=== PATIENT | female | born 1945 | race African-American/Black ===

== ENCOUNTER 2016-10-23 11:04 | Emergency (ER) | payer MEDICARE, OTHER ==
[2016-10-23] MEDS ORDERED: Sodium Chloride 0.9% 1,000 ML ONE (11:58)
[2016-10-23] MEDS ORDERED: Ondansetron HCl/PF 4 MG/2 ML Vial ONE (11:58)
[2016-10-23 12:03] LABS: Bilirubin Negative (Negative); Blood, Urine Trace (Negative); Glucose, Urine (Dipstick) Negative (Negative); Ketone, Urine Negative (Negative); Nitrite Negative (Negative); Protein, Urine (Dipstick) Negative (Neg-Trace); Urobilinogen 0.2 mg/dL (0.2-1.0)
[2016-10-23 12:07] LABS: Bacteria/HPF Rare-Few HPF (None Seen); RBC/HPF 0-3 HPF (0-3); Squamous Epithelial 0-3 HPF (0-3); WBC/HPF 0-3 HPF (0-3)
[2016-10-23 12:13] LABS: #Basophils 0.1 thou/uL (0.0-0.2); #Eosinphils 0.2 thou/uL (0.0-0.7); #Lymphocytes 2.2 thou/uL (1.20-3.40); #Monocytes 0.6 thou/uL (0.11-0.59); #Neutrophils 7.5 thou/uL (1.40-6.50); %Basophils 1.2 % (0.0-1.0); %Eosinophils 1.4 % (0.0-10.0); %Lymphocytes 20.7 % (21.0-51.0); Hematocrit 44.4 % (36.0-47.0); Mean Platelet Volume 6.9 fL (7.4-10.4); Red Blood Cell (RBC) Count 4.74 mill/uL (4.20-5.40); White Blood Cell (WBC) Count 10.6 thou/uL (4.8-10.8)
[2016-10-23 12:25] LABS: ALT (SGPT) 61 U/L (0-55); AST (SGOT) 51 U/L (5-34); Alkaline Phosphatase 71 U/L (40-150); Anion Gap 16 mmol/L (10-20); BUN (Urea Nitrogen) 18 mg/dL (9.8-20.1); Bilirubin, Total 0.6 mg/dL (0.2-1.2); CK (CPK) 211 U/L (29-168); Calc. Creatinine Clearance 0 mL/min (70-130); Calcium 10.2 mg/dL (7.8-10.44); Carbon Dioxide 29 mmol/L (23-31); Chloride 101 mmol/L (98-107); Estimated GFR-MDRD 83; Globulin 3.3 g/dL (2.4-3.5); Lipase 43 U/L (8-78); Troponin I Less than 0.010 ng/mL (< 0.028)
--- NOTE | 2016-10-23 12:31 | RAD ---
SINGLE VIEW OF THE CHEST: INDICATION: Cough. COMPARISON: Prior exam dated 07/30/15. FINDINGS: There is stable mild cardiomegaly. No airspace consolidation or pleural effusion is evident. No ac [place] osseous abnormality is evident. IMPRESSION: Stable mild cardiomegaly. POS: [facility]
--- NOTE | 2016-10-23 13:02 | ERRECORD ---
[facility] EMERGENCY RECORD HPI GENERAL (11:48 JLOY) CHIEF COMPLAINT: Patient presents for evaluation of Pt with 3 days of generalized malaise, intermittent YU, nausea without vomiting, stomach upset, and leg cramps. Pt initially complained in intake of hand and foot numbness but on review she said this has been going on for months and is being followed by her pcp. HISTORIAN: History provided by patient. LOCATION: Symptoms are generalized. QUALITY: Pain is dull in nature. TIME COURSE: Gradual onset of symptoms, There has been no change in the patient's symptoms over time, are intermittent. ASSOCIATED WITH: Associated with nausea, runny nose, slight cough. Also with epigastric upset that feels like her GERD. She treated this last pm with TUMS and felt it improved. No GERD meds taken regularly though 'Mae been told I could take Prilosec regularly if I wanted'. EXACERBATED BY: Patient's condition exacerbated by nothing. RELIEVED BY: Patient's condition relieved by nothing. ROS (11:51 JL) CONSTITUTIONAL: Historian denies chills, reports fatigue, denies fever, reports malaise. EYES: Historian denies eye pain, denies eye redness, denies eye discharge. ENT: Historian reports rhinorrhea, denies sore throat. ears both feel 'plugged'. CARDIOVASCULAR: Historian denies chest pain. RESPIRATORY: Historian reports cough, denies shortness of breath, reports sputum. described as thick. GI: Historian denies abdominal pain, denies constipation, denies diarrhea, denies hematemesis, denies hematochezia, denies melena, reports nausea, denies vomiting. GENITOURINARY FEMALE: Historian denies dysuria, denies frequency, denies hematuria. MUSCULOSKELETAL: Historian denies arthralgias, denies myalgias. leg cramps. SKIN: Historian denies rash, denies skin changes. NEUROLOGIC: intermittent mild YU, intermittent mild dizziness. PAST MEDICAL HISTORY MEDICAL HISTORY: Notes: as lsited, Past medical history includes gastrointestinal disease, gastroesophageal reflux disease, Past medical history includes history of diabetes, diet controlled,includes endocrine disease, hypothyroidism,history of hyperlipidemia, high cholesterol, currently being treated,history of hypertension, which has been treated,, history includes cardiac history, Treated with angioplasty, on 2011, h/o Arthritis. (12:00 GHIA) &a-1R&a+25V*p+0X*[id number]*c202B*c15G*c2P*p-0X&a-25V&a+1R Name: Neris Pillai : 1945 F71 MedRec: [id number] AcctNum: [id number] Prepared: SunOct 23, 2016 13:30 by Interface Page [address] [facility] EMERGENCY RECORD FEMALE SURGICAL HISTORY: as listed, Surgical history of cholecystectomy, Surgical history of hysterectomy, Surgical history of thyroidectomy. Surgical history of spinal surgery, cervical, Notes: FUSION OF C6, REMOVAL OF C4 AND C5. (12:00 GHIA) PSYCHIATRIC HISTORY: Psychiatric history includes, anxiety, Psychiatric history includes, anxiety. (12:00 GHIA) SOCIAL HISTORY: Social History includes lives with family, Patient denies alcohol use, Patient denies drug use, Patient has no smoking history, . . (12:00 GHIA) NOTES: Nursing records reviewed, Agree with nursing records. (11:54 JLOY) KNOWN ALLERGIES Penicillins CURRENT MEDICATIONS No recorded medications VITAL SIGNS VITAL SIGNS: BP: 145/63, Pulse: 61, Resp: 19, Pain: 7, O2 sat: 99 on RA, Time: 10/23/2016 11:37. (11:37 GHIA) BP: 154/63, Pulse: 58, Resp: 17, Pain: 7, O2 sat: 99 on Room Air, Time: 10/23/2016 11:58. (11:58 GHIA) BP: 123/58, Pulse: 58, Resp: 18, Temp: 98.1, Pain: 4, O2 sat: 97% on RA, Time: 10/23/2016 13:24. (13:24 REZE) PHYSICAL EXAM CONSTITUTIONAL: Vital signs reviewed, Patient appears non toxic, Patient alert and oriented to person, place and time. (11:53 JLOY) EYES: Eye exam included findings of eyelids normal to inspection, Pupils equally round and reactive to light, Conjunctiva normal. (11:53 JLOY) ENT: Ear exam included findings of, left external ear with impacted cerumen, right external ear with impacted cerumen, Pharynx exam normal, Uvula exam normal, Tonsil exam normal, Mouth exam included findings of, mucous membranes dry. (11:53 JLOY) NECK: Neck exam included findings of normal range of motion, Trachea midline, no jugular venous distention, no cervical adenopathy. (11:53 JLOY) RESPIRATORY CHEST: Respiratory exam included findings of no respiratory distress, Breath sounds clear, No wheezing, No rales, No rhonchi, Chest exam included findings of chest movement symmetrical. (11:53 JLOY) CARDIOVASCULAR: Cardiovascular exam included findings of heart rate regular rate and rhythm, Heart sounds normal, normal S1, normal S2, no murmurs, no rub, no gallop. (11:53 JLOY) ABDOMEN FEMALE: Abdominal exam included findings of abdomen &a-1R&a+25V*p+0X*s1994B*c202B*c15G*c2P*p-0X&a-25V&a+1R Name: Neris Pillai : 1945 F71 MedRec: [id number] AcctNum: [id number] Prepared: SunOct 23, 2016 13:30 by Interface Page [address] [facility] EMERGENCY RECORD nontender, Bowel sounds normal, Liver normal, Spleen normal, no peritoneal signs, no rigidity, no guarding, no rebound. (11:53 JLOY) BACK: Back exam included findings of normal inspection, range of motion normal. (11:53 JLOY) UPPER EXTREMITY: Upper extremity exam included findings of inspection normal, Radial pulse normal, no cyanosis, no clubbing, no edema. (11:53 JLOY) LOWER EXTREMITY: Lower extremity exam included findings of inspection normal, Pedal pulse normal, no edema, no calf tenderness. (11:53 JLOY) NEURO: Yoly coma scale 15, Neuro exam findings include patient oriented to person, place and time, Speech normal. (11:53 JLOY) SKIN: Skin exam included findings of skin warm, dry, and normal in color, no rash. (11:53 JLOY) PSYCHIATRIC: Affect, flat. (11:54 JLOY) MEDICATION ADMINISTRATION SUMMARY Drug Name: ondansetron HCl intravenous, Dose Ordered: 4 mg, Route: IV Push, Status: Given, Time: 12:07 10/23/2016, Drug Name: *sodium chloride 0.9 % intravenous, Dose Ordered: 1 L, Route: IV Fluid Infusion, Status: Given, Time: 12:05 10/23/2016, *Additional information available in notes, Detailed record available in Medication Service section. DOCTOR NOTES (12:52 JLJAZMIN) RE-EVALUATION: The patient's condition has improved, Pt reports she is feeling much better. PROBLEM LIST No recorded problems DIAGNOSIS (12:52 CINTIA) FINAL: PRIMARY: Viral infection. PRESCRIPTION (12:52 JL) Zofran oral: TABLET : 4 mg : ORAL : Quantity: 1 Unit: tab(s) Route: ORAL Schedule: every 6 hours PRN Dispense: 15 May substitute. Refills: No Refills . NOTES: USE NEEDED FOR NAUSEA No Refills. DISPOSITION PATIENT: Disposition Type: Discharge, Disposition: *Discharge Home. (12:52 CINTIA) Patient left the department. (13:29 LOU) Butterfield: JULIETH=PTEER Escobar, Antonia CHAMBERLAIN=MD Gerry, Stefano BLAKE=PETER Medrano, Esther &a-1R&a+25V*p+0X*c0113E*c202B*c15G*c2P*p-0X&a-25V&a+1R Name: Neris Pillai Jorge : 1945 F71 MedRec: [id number] AcctNum: [id number] Prepared: SunOct 23, 2016 13:30 by Interface Page 3 of 3 pMD MTDD
--- NOTE | 2016-10-23 13:02 | PICIS ---
[facility] EMERGENCY RECORD TRIAGE (SunOct 23, 2016 11:37 GHIA) TRIAGE NOTES: Pt with N/V and bloating in abd; coughing; hand numbness for few months " from diab per nerve ". (SunOct 23, 2016 11:37 GHIA) PATIENT: NAME: Neris Pillai, AGE: 71, GENDER: female, : Sun1945, TIME OF GREET: SunOct 23, 2016 11:05, PREFERRED LANGUAGE: Bengali, ETHNICITY: Not or , ECODE BILLING MAP: [facility], SSN: [id number], Zip Code: [address], KG WEIGHT: 66.22, PHONE: , , , PERSON ID: [id number], PCP: Gilbert HARRIS ZENIA. (SunOct 23, 2016 11:37 GHIA) COMPLAINT: NAUSEA,DIZZINESS,LEFT HAND AND RIGHT FOOT NUMBNESS. (SunOct 23, 2016 11:37 GHIA) ADMISSION: URGENCY: 3 Urgent, ADMISSION SOURCE: Home, TRANSPORT: Walk-in, BED: TRIAGE. (SunOct 23, 2016 11:37 GHIA) ASSESSMENT: Assessment: Pt with Nausea, Yu , abd bloating/pain, cough, ear ache. (12:00 GHIA) PAIN: Patient complains of pain described as, Location abd and ears. (12:00 GHIA) IMMUNIZATIONS: Flu vaccine up to date, Tetanus immunization up to date, Pneumococcal vaccine up to date. (12:00 GHIA) SIRS SCORING: Heart Rate 55-109 (0), Temp range 96.8-101.1 (0), respiratory rate 12-24 (0), Mental Status altered: no (0). (12:00 GHIA) TRIAGE SCREENING: Patient denies suicidal ideation, Patient denies presence of domestic violence. (12:00 GHIA) LMP: LMP: Menopause. (12:00 GHIA) TREATMENTS IN PROGRESS: Treatments given Prehospital: pt took all morning meds this a.m. (12:00 GHIA) PROVIDERS: TRIAGE NURSE: Antonia Escobar RN. (SunOct 23, 2016 11:37 GHIA) VITAL SIGNS: BP 154/63, Pulse 58, Resp 17, Pain 7, O2 Sat 99, on Room Air, Time 10/23/2016 11:58. (11:58 GHIA) PREVIOUS VISIT ALLERGIES: Penicillins. (SunOct 23, 2016 11:37 GHIA) Penicillins. (12:00 GHIA) KNOWN ALLERGIES Penicillins CURRENT MEDICATIONS No recorded medications VITAL SIGNS VITAL SIGNS: BP: 145/63, Pulse: 61, Resp: 19, Pain: 7, O2 sat: 99 on RA, Time: 10/23/2016 11:37. (11:37 GHIA) BP: 154/63, Pulse: 58, Resp: 17, Pain: 7, O2 sat: 99 on Room Air, Time: 10/23/2016 11:58. (11:58 GHIA) BP: 123/58, Pulse: 58, Resp: 18, Temp: 98.1, Pain: 4, O2 sat: 97% on RA, Time: 10/23/2016 13:24. (13:24 LOU) &a-1R&a+25V*p+0X*l5899Z*c202B*c15G*c2P*p-0X&a-25V&a+1R Name: Neris Pillai : 1945 F71 MedRec: [id number] AcctNum: [id number] Prepared: SunOct 23, 2016 13:37 by Interface Page 1 of 10 pMD [facility] EMERGENCY RECORD NURSING ASSESSMENT: HEAD-TO-TOE (11:37 GHIA) CONSTITUTIONAL: Patient arrives, via hospital wheelchair, Gait steady, History obtained from patient, Patient appears comfortable, Patient cooperative, Patient alert, Oriented to person, place and time, Skin warm, Skin dry, Skin normal in color, Mucous membranes pink, Mucous membranes moist, Patient is well-groomed, Patient complains of Nausea, YU, abd bloating; cough/ear pain, Pt in room in bed in gown. Assess. Plan of care of pt in Er discussed. PAIN: aching pain, abd pain, Onset of pain few days ago, constant, on a scale 0-10 patient rates pain as 7. SKIN: Skin assessment findings include skin warm, Skin dry, Skin normal in color, Notes: intact. RESPIRATORY/CHEST: Respiratory assessment findings include respiratory effort easy, Associated with cough, productive of, white sputum. CARDIOVASCULAR: Cardiovascular assessment findings include heart rate normal. ABDOMEN: Abdomen assessment findings include abdomen symmetrical, Associated with nausea, no associated vomiting, no associated diarrhea, no associated constipation. GENITOURINARY FEMALE: no associated urinary complaints. NOTES: Emotional support needed and given, Patient tolerated procedure well. SAFETY: Side rails up, Cart/Stretcher in lowest position, Call light within reach, Hospital ID band on. VITAL SIGNS: BP: 145, / 63, Pulse: 61, Resp: 19, Pain: 7, O2 sat: 99, on: RA. NURSING PROCEDURE: DISCHARGE NOTE (13:24 REZE) DISCHARGE: Patient discharged to home, ambulating without assistance, driving self, Summary of Care printed/ provided, Patient requested and was provided an electronic copy of Discharge Instructions, Transition record given to patient, Discharge instructions given to patient, Simple or moderate discharge teaching performed, by JOSEFA ALVA RN, Instructed to rest and drink plenty of fluids. If symptoms worsen return to Er. Follow up with pcp in 7-10 days. Take Zofran as needed for n/v, Prescriptions given and instructions on side effects given, Name of prescription(s) given: zofran, Above person(s) verbalized understanding of discharge instructions and follow-up care. BELONGINGS: Belongings remain with patient, Valuables remain with patient. VITAL SIGNS: BP: 123, / 58, Pulse: 58, Resp: 18, Temp: 98.1, Pain: 4, O2 sat: 97%, on: RA. NURSING PROCEDURE: IV (12:00 REZE) PATIENT IDENITIFIER: Patient actively involved in identification process, Patient's identity verified by patient stating name, &a-1R&a+25V*p+0X*n0145A*c202B*c15G*c2P*p-0X&a-25V&a+1R Name: Neris Pillai : 1945 F71 MedRec: [id number] AcctNum: [id number] Prepared: SunOct 23, 2016 13:37 by Interface Page 2 of 10 pMD [facility] EMERGENCY RECORD Patient's identity verified by patient stating date. IV SITE 1: IV therapy indicated for hydration, IV therapy indicated for medication administration, IV established, to the right forearm, using a 20 gauge catheter, in one attempt, IV site prepped with CHLORAPREP, Saline lock established, Flushed with normal saline (mls): 10 ML, Labs drawn at time of placement, labeled in the presence of the patient and sent to lab. FOLLOW-UP SITE 1: After procedure, sterile transparent dressing applied. NOTES: Patient tolerated procedure well. SAFETY: Side rails up, Cart/Stretcher in lowest position, Family at bedside, Call light within reach. NURSING PROCEDURE: NURSE NOTES NURSES NOTES: Notes: Er DR at bedside. (11:40 GHIA) Patient in no apparent distress, Assistance offered to patient, Patient is awaiting results, Notes: Pt resting no c/o. (12:15 GHIA) Patient in no apparent distress, Assistance offered to patient, Patient is awaiting results, Notes: Pt visiting with So x 1 at bedside. (12:53 GHIA) ORDER DETAILS Order Name: Cardiac Profile w/CKMB & Troponin - I, Status: Active, Time: 11:47 10/23/2016, User: CINTIA, - Ordered for: MD Garrett Joshua, - Entered by: MD Garrett Joshua - [facility] Oct 23, 2016 11:47, - Quantity: 1, Order Name: CBC with Differential, Status: Active, Time: 11:47 10/23/2016, User: CINTIA, - Ordered for: MD Garrett Joshua, - Entered by: MD Garrett Joshua - [facility] Oct 23, 2016 11:47, - Quantity: 1, Order Name: CK (CPK), Status: Active, Time: 11:47 10/23/2016, User: CINTIA, - Ordered for: MD Garrett Joshua, - Entered by: MD Garrett Joshua - [facility] Oct 23, 2016 11:47, - Quantity: 1, Order Name: Comprehensive Metabolic Panel, Status: Active, Time: 11:47 10/23/2016, User: CINTIA, - Ordered for: MD Garrett Joshua, - Entered by: MD Garrett Joshua - [facility] Oct 23, 2016 11:47, - Quantity: 1, Order Name: EKG 12 Lead in Emergency Room, Status: Active, Time: 11:47 10/23/2016, User: CINTIA, - Ordered for: MD Garrett Joshua, - Entered by: MD Garrett Joshua - [facility] Oct 23, 2016 11:47, - Quantity: 1, Order Name: Lipase, Status: Active, Time: 11:47 10/23/2016, User: CINTIA, - Ordered for: MD Garrett Joshua, &a-1R&a+25V*p+0X*o6968Q*c202B*c15G*c2P*p-0X&a-25V&a+1R Name: Neris Pillai : 1945 F71 MedRec: [id number] AcctNum: [id number] Prepared: SunOct 23, 2016 13:37 by Interface Page [address] [facility] EMERGENCY RECORD - Entered by: MD Garrett Joshua - [facility] Oct 23, 2016 11:47, - Quantity: 1, Order Name: SALINE LOCK, Status: Done, Time: 11:56 10/23/2016, User: LOU, - Ordered for: MD Garrett Joshua, - Entered by: MD Garrett Joshua - [facility] Oct 23, 2016 11:47, - Quantity: 1, Order Name: Urinalysis w/ Rflx Microscopic, Status: Active, Time: 11:47 10/23/2016, User: CINTIA, - Ordered for: MD Garrett Joshua, - Entered by: MD Garrett Joshua - [facility] Oct 23, 2016 11:47, - Quantity: 1, Order Name: XR Chest 1 View Portable, Status: Active, Time: 11:47 10/23/2016, User: CINTIA, - Ordered for: MD Garrett Joshua, - Entered by: MD Garrett Joshua - Mon Oct 23, 2016 11:47, - Quantity: 1. MEDICATION ADMINISTRATION SUMMARY Drug Name: ondansetron HCl intravenous, Dose Ordered: 4 mg, Route: IV Push, Status: Given, Time: 12:07 10/23/2016, Drug Name: *sodium chloride 0.9 % intravenous, Dose Ordered: 1 L, Route: IV Fluid Infusion, Status: Given, Time: 12:05 10/23/2016, *Additional information available in notes, Detailed record available in Medication Service section. MEDICATION SERVICE ondansetron HCl intravenous: Order: ondansetron HCl intravenous (ondansetron HCl) - Dose: 4 mg : IV Push Ordered by: Stefano Garrett MD Entered by: Stefano Garrett MD SunOct 23, 2016 11:48 , Acknowledged by: Josefa Alva RN SunOct 23, 2016 11:57 Documented as given by: Josefa Alva RN SunOct 23, 2016 12:07 Patient, Medication, Dose, Route and Time verified prior to administration. Amount given: 4 MG, IV SITE #1 IVP, initial medication, Slowly, Connections checked prior to administration, Line traced prior to administration, Catheter placement confirmed via flush prior to administration, IV site without signs or symptoms of infiltration during medication administration, No swelling during administration, No drainage during administration, IV flushed after administration, Correct patient, time, route, dose and medication confirmed prior to administration, Patient advised of actions and side-effects prior to administration, Allergies confirmed and medications reviewed prior to administration, Patient in position of comfort, Side rails up, Cart in lowest position, Family at bedside. sodium chloride 0.9 % intravenous: Order: sodium chloride 0.9 % intravenous (0.9 % sodium chloride) - Dose: 1 L : IV Fluid Infusion &a-1R&a+25V*p+0X*q6330I*c202B*c15G*c2P*p-0X&a-25V&a+1R Name: Neris Pillai : 1945 F71 MedRec: [id number] AcctNum: [id number] Prepared: SunOct 23, 2016 13:37 by Interface Page 4 of 10 pMD [facility] EMERGENCY RECORD Notes: (Bolus) Ordered by: Stefano Garrett MD Entered by: Stefano Garrett MD SunOct 23, 2016 11:47 , Acknowledged by: Josefa Alva RN SunOct 23, 2016 11:57 Documented as given by: Josefa Alva RN SunOct 23, 2016 12:05 Patient, Medication, Dose, Route and Time verified prior to administration. Amount given: 1000 ML, IV SITE #1 IV fluids established for hydration, IV SITE #1 into right forearm, IV SITE #1 1st bag hung, amount 1 Liter hung, IV SITE #1 bolus of 1000 ml established, IV SITE #1 Rate of bolus, 999, ml/hr, via primary tubing, via pump tubing, IV SITE #1 on IV pump, Connections checked prior to administration, Line traced prior to administration, Catheter placement confirmed via flush prior to administration, IV site without signs or symptoms of infiltration during medication administration, No swelling during administration, No drainage during administration, IV flushed after administration, Correct patient, time, route, dose and medication confirmed prior to administration, Patient advised of actions and side-effects prior to administration, Allergies confirmed and medications reviewed prior to administration, Patient in position of comfort, Side rails up, Cart in lowest position, Family at bedside. : Follow Up : Response assessment performed, No signs or symptoms of allergic reaction noted, _IV SITE #1:_, IV fluid infusion discontinued, on SunOct 23, 2016 13:15, Total fluid hydration time IV site 1 1 hour, 10 minutes, ., Total amount infused: 1000 ML, IV Discontinued with catheter intact. (13:15 REZE) HPI GENERAL (11:48 [facility]) CHIEF COMPLAINT: Patient presents for evaluation of Pt with 3 days of generalized malaise, intermittent YU, nausea without vomiting, stomach upset, and leg cramps. Pt initially complained in intake of hand and foot numbness but on review she said this has been going on for months and is being followed by her pcp. HISTORIAN: History provided by patient. LOCATION: Symptoms are generalized. QUALITY: Pain is dull in nature. TIME COURSE: Gradual onset of symptoms, There has been no change in the patient's symptoms over time, are intermittent. ASSOCIATED WITH: Associated with nausea, runny nose, slight cough. Also with epigastric upset that feels like her GERD. She treated this last pm with TUMS and felt it improved. No GERD meds taken regularly though 'Mae been told I could take Prilosec regularly if I wanted'. EXACERBATED BY: Patient's condition exacerbated by nothing. RELIEVED BY: Patient's condition relieved by nothing. ROS (11:51 [facility]) CONSTITUTIONAL: Historian denies chills, reports fatigue, denies fever, reports malaise. &a-1R&a+25V*p+0X*g4733S*c202B*c15G*c2P*p-0X&a-25V&a+1R Name: Neris Pillai : 1945 F71 MedRec: [id number] AcctNum: [id number] Prepared: SunOct 23, 2016 13:37 by Interface Page 5 of 10 pMD [facility] EMERGENCY RECORD EYES: Historian denies eye pain, denies eye redness, denies eye discharge. ENT: Historian reports rhinorrhea, denies sore throat. ears both feel 'plugged'. CARDIOVASCULAR: Historian denies chest pain. RESPIRATORY: Historian reports cough, denies shortness of breath, reports sputum. described as thick. GI: Historian denies abdominal pain, denies constipation, denies diarrhea, denies hematemesis, denies hematochezia, denies melena, reports nausea, denies vomiting. GENITOURINARY FEMALE: Historian denies dysuria, denies frequency, denies hematuria. MUSCULOSKELETAL: Historian denies arthralgias, denies myalgias. leg cramps. SKIN: Historian denies rash, denies skin changes. NEUROLOGIC: intermittent mild YU, intermittent mild dizziness. PAST MEDICAL HISTORY MEDICAL HISTORY: Notes: as lsited, Past medical history includes gastrointestinal disease, gastroesophageal reflux disease, Past medical history includes history of diabetes, diet controlled,includes endocrine disease, hypothyroidism,history of hyperlipidemia, high cholesterol, currently being treated,history of hypertension, which has been treated,, history includes cardiac history, Treated with angioplasty, on 2011, h/o Arthritis. (12:00 GHIA) FEMALE SURGICAL HISTORY: as listed, Surgical history of cholecystectomy, Surgical history of hysterectomy, Surgical history of thyroidectomy. Surgical history of spinal surgery, cervical, Notes: FUSION OF C6, REMOVAL OF C4 AND C5. (12:00 GHIA) PSYCHIATRIC HISTORY: Psychiatric history includes, anxiety, Psychiatric history includes, anxiety. (12:00 GHIA) SOCIAL HISTORY: Social History includes lives with family, Patient denies alcohol use, Patient denies drug use, Patient has no smoking history, . . (12:00 GHIA) NOTES: Nursing records reviewed, Agree with nursing records. (11:54 JLOY) PHYSICAL EXAM CONSTITUTIONAL: Vital signs reviewed, Patient appears non toxic, Patient alert and oriented to person, place and time. (11:53 JLOY) EYES: Eye exam included findings of eyelids normal to inspection, Pupils equally round and reactive to light, Conjunctiva normal. (11:53 JLOY) ENT: Ear exam included findings of, left external ear with impacted cerumen, right external ear with impacted cerumen, Pharynx exam normal, Uvula exam normal, Tonsil exam &a-1R&a+25V*p+0X*d8252M*c202B*c15G*c2P*p-0X&a-25V&a+1R Name: Neris Pillai : 1945 F71 MedRec: [id number] AcctNum: [id number] Prepared: SunOct 23, 2016 13:37 by Interface Page 6 of 10 pMD [facility] EMERGENCY RECORD normal, Mouth exam included findings of, mucous membranes dry. (11:53 JLOY) NECK: Neck exam included findings of normal range of motion, Trachea midline, no jugular venous distention, no cervical adenopathy. (11:53 JLOY) RESPIRATORY CHEST: Respiratory exam included findings of no respiratory distress, Breath sounds clear, No wheezing, No rales, No rhonchi, Chest exam included findings of chest movement symmetrical. (11:53 JLOY) CARDIOVASCULAR: Cardiovascular exam included findings of heart rate regular rate and rhythm, Heart sounds normal, normal S1, normal S2, no murmurs, no rub, no gallop. (11:53 JLOY) ABDOMEN FEMALE: Abdominal exam included findings of abdomen nontender, Bowel sounds normal, Liver normal, Spleen normal, no peritoneal signs, no rigidity, no guarding, no rebound. (11:53 JLOY) BACK: Back exam included findings of normal inspection, range of motion normal. (11:53 JLOY) UPPER EXTREMITY: Upper extremity exam included findings of inspection normal, Radial pulse normal, no cyanosis, no clubbing, no edema. (11:53 JLOY) LOWER EXTREMITY: Lower extremity exam included findings of inspection normal, Pedal pulse normal, no edema, no calf tenderness. (11:53 JLOY) NEURO: [place] coma scale 15, Neuro exam findings include patient oriented to person, place and time, Speech normal. (11:53 JLOY) SKIN: Skin exam included findings of skin warm, dry, and normal in color, no rash. (11:53 JLOY) PSYCHIATRIC: Affect, flat. (11:54 JLOY) EVENTS TRANSFER: Triage to Emergency Triage. (11:37 GHIA) Emergency Triage to Emergency Room -03. (11:37 GHIA) Removed from Emergency Emergency Room -03. (13:29 REZE) DOCTOR NOTES (12:52 JLOY) RE-EVALUATION: The patient's condition has improved, Pt reports she is feeling much better. PROBLEM LIST No recorded problems DIAGNOSIS (12:52 JLOY) FINAL: PRIMARY: Viral infection. DISPOSITION PATIENT: Disposition Type: Discharge, Disposition: *Discharge Home. (12:52 JLOY) Patient left the department. (13:29 REZE) INSTRUCTION (12:52 JLOY) &a-1R&a+25V*p+0X*x4205B*c202B*c15G*c2P*p-0X&a-25V&a+1R Name: Neris Pillai : 1945 F71 MedRec: [id number] AcctNum: [id number] Prepared: SunOct 23, 2016 13:37 by Interface Page 7 of 10 pMD [facility] EMERGENCY RECORD DISCHARGE: VIRAL SYNDROME (ADULT). FOLLOWUP: Gilbert HARRIS, DOUG, [facility], [address] [place] [address], [address], [facility] [id number], [phone], Follow up with Primary Care Physician in 7-10 days. PRESCRIPTION (12:52 JLOY) Zofran oral: TABLET : 4 mg : ORAL : Quantity: 1 Unit: tab(s) Route: ORAL Schedule: every 6 hours PRN Dispense: 15 May substitute. Refills: No Refills . NOTES: USE NEEDED FOR NAUSEA No Refills. IMAGING *EKG: Image captured from scanner. (13:23 REZE) *SUPPLY CHARGE SHEET: Image captured from scanner. (13:24 REZE) *DISCHARGE INSTRUCTIONS RECEIPT: Image captured from scanner. (13:24 REZE) ADMIN DIGITAL SIGNATURE: MD Gerry, Stefano. (12:53 [facility]) PETER Alva, Josefa. (13:28 REZE) RESULTS (12:47 JL) LABORATORY: Lipase Collection DT: SunOct 23, 2016 11:59, Lipase 43 U/L, Range (8-78). CK (CPK) Collection DT: SunOct 23, 2016 11:59, *CK (CPK) 211 - H U/L, Range (29-168). Comprehensive Metabolic Panel Collection DT: SunOct 23, 2016 11:59, Sodium 142 mmol/L, Range (136-145), Potassium 3.7 mmol/L, Range (3.5-5.1), Chloride 101 mmol/L, Range (98-107), Carbon Dioxide 29 mmol/L, Range (23-31), Anion Gap 16 mmol/L, Range (10-20), BUN (Urea Nitrogen) 18 mg/dL, Range (9.8-20.1), Creatinine 0.82 mg/dL, Range (0.6-1.1), Estimated GFR-MDRD 83 , Reference Range for Estimated GFR: Greater than 90, mL/min/1.73 m2 NOTE: The MDRD equation has not been validated for use, with the elderly (over 70 years of age), women, patients with, serious comorbid condition or persons with extremes of body size, muscle, mass, or nutritional status. , *Glucose 139 - H mg/dL, Range (80-115), Calcium 10.2 mg/dL, Range (7.8-10.44), Bilirubin, Total 0.6 mg/dL, Range (0.2-1.2), Protein, Total 8.0 g/dL, Range (5.8-8.1), NOTE: Plasma values are generally 0.3 to 0.5 g/dL higher than serum values, due to the presence of fibrinogen. , Albumin 4.7 g/dL, Range (3.4-4.8), &a-1R&a+25V*p+0X*j2176Y*c202B*c15G*c2P*p-0X&a-25V&a+1R Name: Neris Pillai : 1945 F71 MedRec: [id number] AcctNum: [id number] Prepared: SunOct 23, 2016 13:37 by Interface Page 8 of 10 pMD [facility] EMERGENCY RECORD Globulin 3.3 g/dL, Range (2.4-3.5), Alb/Glob Ratio 1.4 g/dL, Range (1.2-2.2), Alkaline Phosphatase 71 U/L, Range (40-150), *AST (SGOT) 51 - H U/L, Range (5-34), *ALT (SGPT) 61 - H U/L, Range (0-55). Cardiac Profile w/CKMB & TropI Collection DT: SunOct 23, 2016 11:59, CKMB 3.3 ng/mL, Range (0-6.6), Troponin I Less than 0.010 ng/mL, Range (< 0.028), Reference Range , 0.00 - 0.028 ng/mL Negative 0.029 - 0.29 ng/mL , Indeterminate Greater or Equal to 0.3 ng/mL Strongly suggests [place] , . CBC with Differential Collection DT: SunOct 23, 2016 11:59, White Blood Cell (WBC) Count 10.6 thou/uL, Range (4.8-10.8), Red Blood Cell (RBC) Count 4.74 mill/uL, Range (4.20-5.40), Hemoglobin 14.8 g/dL, Range (12.0-16.0), Hematocrit 44.4 %, Range (36.0-47.0), Mean Corpuscular Volume 93.8 fl, Range (81.0-99.0), *Mean Corpuscular Hemoglobin 31.2 - H pg, Range (27.0-31.0), Mean Corpuscular HGB CONC 33.3 g/dL, Range (32.0-36.0), RBC Distribution Width 12.4 %, Range (11.5-14.5), Platelet Count 306 thou/uL, Range (130-400), *Mean Platelet Volume 6.9 - L fL, Range (7.4-10.4), %Neutrophils 70.8 %, Range (42.0-75.0), *%Lymphocytes 20.7 - L %, Range (21.0-51.0), %Monocytes 6.0 %, Range (0.0-10.0), %Eosinophils 1.4 %, Range (0.0-10.0), *%Basophils 1.2 - H %, Range (0.0-1.0), *#Neutrophils 7.5 - H thou/uL, Range (1.40-6.50), #Lymphocytes 2.2 thou/uL, Range (1.20-3.40), *#Monocytes 0.6 - H thou/uL, Range (0.11-0.59), #Eosinphils 0.2 thou/uL, Range (0.0-0.7), #Basophils 0.1 thou/uL, Range (0.0-0.2). Urine Microscopic Collection DT: SunOct 23, 2016 11:59, RBC/HPF 0-3 HPF, Range (0-3), WBC/HPF 0-3 HPF, Range (0-3), Squamous Epithelial 0-3 HPF, Range (0-3), Bacteria/HPF Rare-Few HPF, Range (None Seen). Urinalysis w/ Rflx Microscopic Collection DT: SunOct 23, 2016 11:59, Color Yellow , Range (Yellow), Clarity Slightly Cloudy , Range (Clear), Specific [place], Urine 1.020 , Range (1.005-1.030), pH, Urine 7.0 , Range (5.0-9.0), Leukocyte Negative , Range (Negative), Nitrite Negative , Range (Negative), Protein, Urine (Dipstick) Negative mg/dL, Range (Neg-Trace), Glucose, Urine (Dipstick) Negative mg/dL, Range (Negative), Ketone, Urine Negative mg/dL, Range (Negative), &a-1R&a+25V*p+0X*c6556G*c202B*c15G*c2P*p-0X&a-25V&a+1R Name: Neris Pillai : 1945 F71 MedRec: [id number] AcctNum: [id number] Prepared: SunOct 23, 2016 13:37 by Interface Page 9 of 10 pMD [facility] EMERGENCY RECORD Urobilinogen 0.2 mg/dL, Range (0.2-1.0), Bilirubin Negative , Range (Negative), *Blood, Urine Trace - H , Range (Negative). [place]: JULIETH=PETER Escobar, Antonia CHAMBERLAIN=MD Gerry, Stefano BLAKE=PETER Alva, Josefa &a-1R&a+25V*p+0X*c0279X*c202B*c15G*c2P*p-0X&a-25V&a+1R Name: Neris Pillai : 1945 F71 MedRec: [id number] AcctNum: [id number] Prepared: SunOct 23, 2016 13:37 by Interface Page 10 of 10 pMD MTDD
== END 2016-10-23 13:24 | disposition home or self-care (01) ==
LOC: NAV ERS 11:04
DX: B34.9 Viral infection, unspecified (principal); K21.9 Gastro-esophageal reflux disease without esophagitis; E11.9 Type 2 diabetes mellitus without complications; E03.9 Hypothyroidism, unspecified; E78.5 Hyperlipidemia, unspecified; I10 Essential (primary) hypertension; F41.9 Anxiety disorder, unspecified; E78.00 Pure hypercholesterolemia, unspecified
CPT/HCPCS: 36415; 71010; 80053; 81003; 81015; 82553; 83690; 84484; 85025; 93005; 96361; 96374; J2405; J7050

== ENCOUNTER 2017-01-29 10:40 | Outpatient (CLI) | payer MEDICARE, OTHER ==
[2017-01-29 11:38] LABS: ALT (SGPT) 19 U/L (8-55); AST (SGOT) 22 U/L (5-34); Albumin 4.5 g/dL (3.4-4.8); Alkaline Phosphatase 62 U/L (40-150); Anion Gap 14 mmol/L (10-20); BUN (Urea Nitrogen) 13 mg/dL (9.8-20.1); Bilirubin, Total 0.6 mg/dL (0.2-1.2); Calc. Creatinine Clearance 0 mL/min (70-130); Calcium 10.1 mg/dL (7.8-10.44); Carbon Dioxide 29 mmol/L (23-31); Cardiac Risk 2.7 (Less than 4.5); Chloride 104 mmol/L (98-107); Cholesterol 165 mg/dl (< 200 Desired); Estimated GFR-MDRD 90; Globulin 3.1 g/dL (2.4-3.5); Glucose 110 mg/dL (80-115); HDL Cholesterol 62 mg/dL (>60 Neg Risk); LDL Cholesterol, Calculated 91 mg/dL; Potassium 3.9 mmol/L (3.5-5.1); Protein, Total 7.6 g/dL (6.0-8.3); Sodium 143 mmol/L (136-145); Triglycerides 60 mg/dL (Less than 150)
== END 2017-01-29 10:41 | disposition home or self-care (01) ==
LOC: NAV LAB 10:40
PROVIDERS: ATTEND Internal Medicine Cardiovascular Disease
DX: E78.00 Pure hypercholesterolemia, unspecified (principal); E11.9 Type 2 diabetes mellitus without complications; I10 Essential (primary) hypertension
CPT/HCPCS: 80053; 80061; 84443

== ENCOUNTER 2017-05-02 11:37 | Outpatient (CLI) | payer MEDICARE, OTHER ==
[~2017-05-02 11:37] MED LIST: Iodixanol 320 MG/ML (100 ML BOT) ONE
[2017-05-02 12:57] LABS: ALT (SGPT) 18 U/L (8-55); AST (SGOT) 20 U/L (5-34); Albumin 4.5 g/dL (3.4-4.8); Alkaline Phosphatase 65 U/L (40-150); Anion Gap 14 mmol/L (10-20); BUN (Urea Nitrogen) 16 mg/dL (9.8-20.1); Bilirubin, Total 0.6 mg/dL (0.2-1.2); Calc. Creatinine Clearance 0 mL/min (70-130); Calcium 10.2 mg/dL (7.8-10.44); Carbon Dioxide 31 mmol/L (23-31); Cardiac Risk 2.7 (Less than 4.5); Chloride 102 mmol/L (98-107); Cholesterol 141 mg/dl (< 200 Desired); Estimated GFR-MDRD 81; Globulin 2.8 g/dL (2.4-3.5); Glucose 102 mg/dL (80-115); HDL Cholesterol 53 mg/dL (>60 Neg Risk); LDL Cholesterol, Calculated 75 mg/dL; Potassium 3.9 mmol/L (3.5-5.1); Protein, Total 7.3 g/dL (6.0-8.3); Sodium 143 mmol/L (136-145); Triglycerides 64 mg/dL (Less than 150)
[2017-05-02 12:58] LABS: Hemoglobin A1c 5.9 % (4.0-6.0)
[2017-05-02 13:09] LABS: Free T4 (Free Thyroxine) 0.85 ng/dL (0.70-1.48); Thyroid Stimulating Hormone 4.1165 uIU/mL (0.35-4.94)
--- NOTE | 2017-05-02 16:35 | CT ---
CT CHEST WITH CONTRAST 05/02/17 HISTORY: Vocal cord paralysis. Chest pain. COMPARISON: Chest one view 10/23/16. FINDINGS: There are multiple hypodensities in the thyroid bed. Ascending aorta size is normal. No aneurysmal dilatation. There is a persistent left supracardinal vein. Pulmonary trunk measures 33 mm. No pericardial effusion. Heart size is normal. No adenopathy. Upper abdomen is unremarkable. There is some scarring in the right lung apex as well as superior segment right lower lobe. Tracheobronchial tree is patent. No pericardial effusion. No s olid mass. No focal air space consolidation. Skeleton is unremarkable. No suspicious lytic or vascular lesions. Incompletely evaluated ACDF. IMPRESSION: 1. Mild prominence of the pulmonary trunk suggestive of pulmonary arterial hypertension. 2. No focal air space consolidation, pneumothorax or effusion. No findings to explain patient's hoarseness. 3. Incompletely evaluated ACDF lower cervical spine with some surgical clips in the thyroid bed with a few small hypodensities. A followup ultrasound may be helpful. POS: YUN
== END 2017-05-02 11:38 | disposition home or self-care (01) ==
LOC: NAV LAB 11:37
PROVIDERS: ATTEND Otolaryngology Plastic Surgery within the Head & Neck
DX: E78.4 Other hyperlipidemia (principal); E11.40 Type 2 diabetes mellitus with diabetic neuropathy, unspecified; E07.1 Dyshormogenetic goiter; J38.00 Paralysis of vocal cords and larynx, unspecified
CPT/HCPCS: 36415; 71260; 80053; 80061; 83036; 84439; 84443; Q9967

== ENCOUNTER 2017-11-12 09:51 | Outpatient (CLI) | payer MEDICARE, MEDICAID ==
--- NOTE | 2017-11-12 15:26 | ULT ---
BILATERAL LOWER EXTREMITY VENOUS DUPLEX STUDY: HISTORY: Lower extremity pain and edema. Claudication. FINDINGS: Deep veins of both lower extremities evaluated with ultrasound, color Doppler, and spectral analysis. Compression study is performed. Deep veins of both lower extremities show normal compression and blood flow. No evidence of DVT. IMPRESSION: No evidence of lower extremity deep vein thrombosis. POS: [facility]
== END 2017-11-12 09:52 | disposition home or self-care (01) ==
LOC: NAV ULT 09:51
PROVIDERS: ATTEND Internal Medicine Endocrinology, Diabetes & Metabolism
DX: I73.9 Peripheral vascular disease, unspecified (principal); M79.604 Pain in right leg; M79.605 Pain in left leg
CPT/HCPCS: 93970

== ENCOUNTER 2021-02-09 18:32 | Emergency (ER) | payer MEDICARE, MEDICAID ==
[2021-02-09 19:05] LABS: #Basophils 0.1 thou/uL (0.0-0.2); #Eosinphils 0.2 thou/uL (0.0-0.7); #Lymphocytes 4.8 thou/uL (1.20-3.40); #Monocytes 0.9 thou/uL (0.11-0.59); #Neutrophils 4.1 thou/uL (1.40-6.50); %Basophils 1.2 % (0.0-1.0); %Eosinophils 2.1 % (0.0-10.0); %Lymphocytes 47.2 % (21.0-51.0); %Monocytes 8.8 % (0.0-10.0); %Neutrophils 40.8 % (42.0-75.0); Hemoglobin 13.9 g/dL (12.0-16.0); Mean Corpuscular HGB CONC 30.6 g/dL (32.0-36.0); Mean Corpuscular Hemoglobin 29.2 pg (27.0-31.0); Mean Corpuscular Volume 95.3 fL (78.0-98.0); Mean Platelet Volume 8.3 fL (7.4-10.4); Platelet Count 251 thou/uL (130-400); RBC Distribution Width 13.1 % (11.5-14.5); Red Blood Cell (RBC) Count 4.76 mill/uL (4.20-5.40); White Blood Cell (WBC) Count 10.1 thou/uL (4.8-10.8)
[2021-02-09 19:13] LABS: ALT (SGPT) 37 U/L (8-55); AST (SGOT) 62 U/L (5-34); Albumin 4.4 g/dL (3.4-4.8); Alkaline Phosphatase 70 U/L (40-110); Anion Gap 14 mmol/L (10-20); BUN (Urea Nitrogen) 14 mg/dL (9.8-20.1); Bilirubin, Total 0.5 mg/dL (0.2-1.2); Calc. Creatinine Clearance 0 mL/min (70-130); Calcium 9.9 mg/dL (7.8-10.44); Carbon Dioxide 27 mmol/L (23-31); Chloride 104 mmol/L (98-107); Globulin 3.2 g/dL (2.4-3.5); Glucose 118 mg/dL (83-110); Lipase 206 U/L (8-78); Potassium 3.9 mmol/L (3.5-5.1); Protein, Total 7.6 g/dL (5.8-8.1); Sodium 141 mmol/L (136-145)
[2021-02-09] MEDS ORDERED: Mag-Al Plus 1200 MG/1200 MG/120 MG/30 ML UDCUP ONE (19:27)
[2021-02-09] MEDS ORDERED: Ondansetron ODT 4 MG TAB ONE (19:27)
[2021-02-09] MEDS ORDERED: Aspirin Chewable 81 MG TAB ONE (19:27)
[2021-02-09] MEDS ORDERED: Lidocaine Viscous Sol 2% 15 ml UD Cup ONE (19:27)
== END 2021-02-09 20:25 | disposition short-term general hospital (02) ==
LOC: NAV ERS 18:32
DX: I10 Essential (primary) hypertension (principal); K21.9 Gastro-esophageal reflux disease without esophagitis; E11.9 Type 2 diabetes mellitus without complications; E03.9 Hypothyroidism, unspecified; E78.5 Hyperlipidemia, unspecified; E78.00 Pure hypercholesterolemia, unspecified; Z79.82 Long term (current) use of aspirin; Z79.84 Long term (current) use of oral hypoglycemic drugs; Z79.899 Other long term (current) drug therapy
CPT/HCPCS: 71045; 80053; 83690; 84484; 85025; 93005; Q0162

== ENCOUNTER 2022-01-12 14:12 | Outpatient (CLI) | payer MEDICARE, MEDICAID | END 2022-01-12 14:13 | disposition home or self-care (01) | LOC: NAV RAD 14:12 | PROVIDERS: ATTEND Internal Medicine Rheumatology | DX: M25.551 Pain in right hip (principal); M25.552 Pain in left hip; M54.50 Low back pain, unspecified; M47.816 Spondylosis without myelopathy or radiculopathy, lumbar region; M16.12 Unilateral primary osteoarthritis, left hip | CPT/HCPCS: 72100; 72170 ==

== ENCOUNTER 2022-12-23 00:08 | Emergency (ER) | payer MEDICARE, MEDICAID ==
[2022-12-23 00:42] LABS: #Basophils 0.1 thou/uL (0.0-0.2); #Eosinphils 0.3 thou/uL (0.0-0.7); #Lymphocytes 3.1 thou/uL (1.20-3.40); #Monocytes 0.6 thou/uL (0.11-0.59); %Basophils 1.4 % (0.0-1.0); %Eosinophils 3.7 % (0.0-10.0); %Lymphocytes 44.5 % (21.0-51.0); %Monocytes 8.2 % (0.0-10.0); %Neutrophils 42.2 % (42.0-75.0); Hemoglobin 14.3 g/dL (12.0-16.0); Mean Corpuscular HGB CONC 31.9 g/dL (32.0-36.0); Mean Corpuscular Hemoglobin 30.8 pg (27.0-31.0); Mean Corpuscular Volume 96.6 fl (78.0-98.0); Mean Platelet Volume 8.3 fL (7.4-10.4); Platelet Count 198 10x3/uL (130-400); RBC Distribution Width 13.1 % (11.5-14.5); Red Blood Cell (RBC) Count 4.63 mill/uL (4.20-5.40); White Blood Cell (WBC) Count 7.1 10x3/uL (4.8-10.8)
[2022-12-23 01:02] LABS: ALT (SGPT) 16 U/L (8-55); AST (SGOT) 16 U/L (5-34); Albumin 4.2 g/dL (3.4-4.8); Alkaline Phosphatase 49 U/L (40-110); Anion Gap 14 mmol/L (10-20); BUN (Urea Nitrogen) 12 mg/dL (9.8-20.1); Bilirubin, Total 0.4 mg/dL (0.2-1.2); Calc. Creatinine Clearance 0 mL/min (70-130); Calcium 9.8 mg/dL (7.8-10.44); Carbon Dioxide 27 mmol/L (23-31); Chloride 109 mmol/L (98-107); Estimated GFR 72; Globulin 2.9 g/dL (2.4-3.5); Glucose 133 mg/dL (83-110); Potassium 3.8 mmol/L (3.5-5.1); Protein, Total 7.1 g/dL (5.8-8.1); Sodium 146 mmol/L (136-145)
[2022-12-23] MEDS ORDERED: Acetaminophen 500 MG TAB ONE (01:05)
[2022-12-23 01:11] LABS: Bacteria/HPF None Seen HPF (None Seen); Bilirubin Negative (Negative); Blood, Urine Trace (Negative); Clarity Clear (Clear); Glucose, Urine (Dipstick) Negative (Negative); Ketone, Urine Negative (Negative); Leukocyte Negative (Negative); Nitrite Negative (Negative); Protein, Urine (Dipstick) Negative (Neg-Trace); RBC/HPF None Seen HPF (0-3); Squamous Epithelial 0-3 HPF (0-3); Urobilinogen 0.2 mg/dL (Less than 2); WBC/HPF None Seen HPF (0-3); pH, Urine 6.5 (5.0-9.0)
== END 2022-12-23 01:55 | disposition home or self-care (01) ==
LOC: NAV ERS 00:08
DX: R00.1 Bradycardia, unspecified (principal); I10 Essential (primary) hypertension; E03.9 Hypothyroidism, unspecified; E11.9 Type 2 diabetes mellitus without complications; Z79.84 Long term (current) use of oral hypoglycemic drugs; Z79.899 Other long term (current) drug therapy
CPT/HCPCS: 71045; 80053; 81003; 81015; 83880; 84443; 84484; 85025; 93005

== ENCOUNTER 2025-08-27 15:41 | Emergency (ER) | payer MEDICARE, MEDICAID ==
[2025-08-27] MEDS ORDERED: Acetaminophen 500 MG TAB ONE (17:13)
[2025-08-27 17:33] LABS: Hematocrit 41.8 % (36.0-47.0); Hemoglobin 14.1 g/dL (12.0-16.0); MDiff Complete? YES; Mean Corpuscular Hemoglobin 30.7 pg (27.0-31.0); Mean Corpuscular Volume 91.1 fl (78.0-98.0); Platelet Count 217 10x3/uL (130-400); Red Blood Cell (RBC) Count 4.58 mill/uL (4.20-5.40); White Blood Cell (WBC) Count 7.3 10x3/uL (4.8-10.8)
[2025-08-27 17:45] LABS: Troponin I Less than 0.010 ng/mL (< 0.028)
[2025-08-27 18:07] LABS: Anion Gap 17 mmol/L (10-20); BUN (Urea Nitrogen) 17 mg/dL (9.8-20.1); Calc. Creatinine Clearance 0 mL/min (70-130); Calcium 9.9 mg/dL (7.8-10.44); Carbon Dioxide 22 mmol/L (23-31); Chloride 107 mmol/L (98-107); Glucose 101 mg/dL (83-110); Potassium 3.6 mmol/L (3.5-5.1); Sodium 142 mmol/L (136-145)
[2025-08-27] MEDS ORDERED: HYDROcodone/Acetaminophen 5/325 mg Tablet ONE (20:08)
== END 2025-08-27 20:45 | disposition home or self-care (01) ==
LOC: NAV ERS 15:41
DX: M79.602 Pain in left arm (principal); E11.9 Type 2 diabetes mellitus without complications; I10 Essential (primary) hypertension; X50.9XXA Other and unspecified overexertion or strenuous movements or postures, initial encounter; Y93.89 Activity, other specified
CPT/HCPCS: 71045; 80048; 84484; 85025; 93005